=== PATIENT | female | born 1990 | race American Indian/Alaskan Native ===

== ENCOUNTER 2017-08-29 22:34 | Emergency (ER) | payer SELFPAY ==
[2017-08-29 22:51] VITALS: BP 128/68
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
== END 2017-08-29 23:45 | disposition home or self-care (01) ==
LOC: ED 22:34
DX: T22.011A Burn of unspecified degree of right forearm, initial encounter (principal); X08.8XXA Exposure to other specified smoke, fire and flames, initial encounter; Y93.89 Activity, other specified; Y92.89 Other specified places as the place of occurrence of the external cause; Y99.8 Other external cause status